=== PATIENT | female | born 1960 | race African-American/Black ===

== ENCOUNTER 2016-05-19 08:09 | Day surgery (SDC) | payer OTHER ==
[2016-05-19] MEDS ORDERED: VALIUM ONE (08:21)
[2016-05-19] MEDS ORDERED: LR 1,000 ML ONE ×3 (08:21→11:43)
[2016-05-19] MEDS ORDERED: KEFZOL 1 GM/D5W 50 ML ONE (08:25)
[2016-05-19] MEDS ORDERED: ROBINUL ONE ×2 (08:46→11:43)
[2016-05-19] MEDS ORDERED: SODIUM CHLORIDE 0.9% ONE (08:57)
[2016-05-19] MEDS ORDERED: MARCAINE 0.25% PF/EPI 1:200,000 ONE (08:57)
--- NOTE | 2016-05-19 10:56 | Diag Imaging Result Document ---
PROCEDURE NAME: OPERATIVE CHOLANGIOGRAM - 05/19/2016 INTRAOPERATIVE CHOLANGIOGRAM, 05/19/2016: COMPARISON: None. FINDINGS: The exam was performed by the patient's surgeon. Contrast was infused into the cystic duct. This outlines normal hepatic and common bile ducts. There is good passage of contrast into the duodenum. IMPRESSION: No evidence of complication.
[2016-05-19] MEDS ORDERED: PHENERGAN ONE (11:32)
[2016-05-19] MEDS ORDERED: FENTANYL ONE (11:34)
[2016-05-19] MEDS ORDERED: DIPRIVAN 1% ONE (11:34)
[2016-05-19] MEDS ORDERED: NEOSTIGMINE ONE (11:42)
[2016-05-19] MEDS ORDERED: DECADRON ONE (11:43)
[2016-05-19] MEDS ORDERED: ZOFRAN ONE ×2 (11:43→13:19)
[2016-05-19] MEDS ORDERED: ZEMURON ONE (11:43)
[2016-05-19] MEDS ORDERED: XYLOCAINE-MPF 2% ONE (11:43)
[2016-05-19] MEDS ORDERED: QUELICIN (DOSE) ONE (11:43)
[2016-05-19] MEDS ORDERED: APRESOLINE ONE (11:53)
[2016-05-19] MEDS ORDERED: NORCO-7.5 ONE (12:15)
--- NOTE | 2016-05-19 12:31 | OPERATIVE NOTE ---
PROCEDURE DATE: 05/19/2016 PREOPERATIVE DIAGNOSIS: Symptomatic cholelithiasis. POSTOPERATIVE DIAGNOSIS: Symptomatic cholelithiasis. PROCEDURE PERFORMED: Laparoscopic cholecystectomy with intraoperative cholangiogram. SURGEON: Antoine Farias MD ESTIMATED BLOOD LOSS: 5 mL. ANESTHESIA: General. SPECIMENS: Gallbladder. OPERATIVE INDICATION: This is a 55-year-old female, who had right upper quadrant pain after meals for quite some time. Symptoms were worsening. Ultrasound showed stones. LFTs were normal. Cholecystectomy was indicated. OPERATIVE FINDINGS: 1. There was an inflamed dilated gallbladder with a large approximately 3-4 cm stone impacted in the infundibulum. 2. Interpretation intraoperative cholangiogram: There was a nondilated cystic duct that was quite long. There was rapid flow of contrast into a nondilated common bile duct and rapid flow in the duodenum without any filling defects. There was retrograde flow in the bilateral second and third degree biliary radicals. The pancreatic duct was not clearly visualized. OPERATIVE NOTE: Risks, benefits, alternatives discussed with the patient, she consented to the procedure. She was seen in the preoperative area and surgery to be performed was confirmed. She was taken to the operating room, placed in supine position. General anesthesia was induced without complication. Preincisional antibiotics were administered. Her abdomen was prepped with chlorhexidine solution, draped in the usual fashion. Time-out was performed between nursing, surgical, and anesthesia staff. All agreed on procedure. Periumbilical block was performed. A curvilinear infraumbilical incision made with an 11 blade scalpel and dissection was carried down to the level of the fascia bluntly. The fascia was elevated with a Vivek clamp and incision along the midline was made. The abdomen was entered in a controlled fashion, 12 mm side trocar was placed and insufflated to 15 [address]aced her in reverse Trendelenburg left side down. The stomach was quite distended so we placed an orogastric tube. Three trocars 5 mm were placed after infiltration in the peritoneum, 1 in the epigastrium, 1 in the midclavicular line off the costal margin, 1 more laterally. We identified the gallbladder and lifted it cephalad. This was quite difficult due to the stone impacted in the infundibulum, but we were able to manipulate this. Starting laterally and progressing medially we dissected out the infundibulocystic junction. The anatomy was quite distorted, but were able to establish critical view of safety with the artery coursing through this triangle. The liver was visualized and no structures behind the cystic duct. I did ask my senior government program analyst Dr. Pelaez to confirm this anatomy with me as it was quite distorted given the large dilated stone in the infundibulum. I placed a clip on the gallbladder side and made a ductotomy and performed a cholangiogram with above findings. After satisfactory appearance of the cholangiogram, we triply clipped the cystic duct and divided, doubly clipped the cystic artery and divided this. Took the gallbladder off the gallbladder fossa with electrocautery obtaining hemostasis as we went. There was no spillage of stone or bile from the gallbladder. We placed it in an EndoCatch bag. We copiously irrigated the abdomen and inspected the cystic duct stump. There was no leakage of bile noted and hemostasis again confirmed. We irrigated until clear. We removed all trocars under direct visualization, desufflated the abdomen, brought the gallbladder out through the umbilical incision. We did have to make this slightly larger to allow admittance of the stone, but we did this successfully. We closed the fascia with 0 Vicryl sutures in interrupted fashion, skin with 4-0 Monocryl. Dermabond was applied. She tolerated it well, woken up and transferred to PACU in good condition. I spoke with the family.
[2016-05-19] MEDS ORDERED: ZOFRAN IV PRN (12:36)
[2016-05-19] MEDS ORDERED: NORCO-7.5 PO PRN (12:36)
[2016-05-19 13:18] VITALS: BP 134/83
== END 2016-05-19 13:45 | disposition home or self-care (01) ==
LOC: OPS 08:09
PROVIDERS: ATTEND Surgery
DX: K80.10 Calculus of gallbladder with chronic cholecystitis without obstruction (principal)
CPT/HCPCS: 74300; 88304; C1751; J0330; J0360; J0690; J1100; J2405; J2550; J3010; J7120; Q9966; J2710